=== PATIENT | male | born 1975 | race Caucasian/White ===

== ENCOUNTER 2017-08-03 18:49 | Emergency (ER) | payer OTHER ==
[2017-08-03] MEDS ORDERED: Sodium Chloride 0.9% 1,000 ML IV SCH (19:15)
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
[2017-08-03 19:39] LABS: ACETAMINOPHEN 0 ug/mL (10-30)
--- NOTE | 2017-08-04 07:09 | CR ---
Chest: Frontal view of the chest was obtained. Comparison: No previous study. Heart size and mediastinum are normal. Lungs are clear. Bony structures are grossly intact. Impression: 1. Nothing acute is seen on frontal chest x-ray. Diagnostic code #1
== END 2017-08-03 20:40 | disposition home or self-care (01) ==
LOC: JD.ED 18:49
DX: F10.229 Alcohol dependence with intoxication, unspecified (principal); F17.210 Nicotine dependence, cigarettes, uncomplicated; Y90.7 Blood alcohol level of 200-239 mg/100 ml
CPT/HCPCS: 36415; 71045; 80053; 80306; 81001; 83605; 83735; 83930; 84484; 85025; 85379; 85610; 85730; 93005; 96360; 99285; G0480; J7040; 99283

== ENCOUNTER 2022-10-11 21:45 | Emergency (ER) | payer OTHER, BC ==
[2022-10-11] MEDS ORDERED: Ondansetron 4 MG/2 ML SDV IVPUSH ONE (21:54)
[2022-10-11] MEDS ORDERED: HYDROmorphone 0.5 MG/0.5 ML Syringe IVPUSH ONE (21:54)
[2022-10-11] MEDS ORDERED: Sodium Chloride 0.9% 1,000 ML IV SCH (22:00)
[2022-10-11] MEDS ORDERED: Diphtheria,Pertussis(Acell),Tetanus Vaccine 0.5 ML Syringe IM ONE (22:12)
[2022-10-11] MEDS ORDERED: HYDROmorphone 1 MG/ML Syringe IVPUSH ONE (23:54)
[2022-10-12] MEDS ORDERED: Lidocaine 1% 4 ML ONE (00:59)
[2022-10-12] MEDS ORDERED: fentaNYL 100 MCG/2 ML SDV ONE (00:59)
[2022-10-12] MEDS ORDERED: Propofol 200 MG/20 ML SDV ONE (00:59)
[2022-10-12] MEDS ORDERED: HYDROmorphone 1 MG/ML Syringe IVPUSH ONE ×3 (01:11→03:04)
[2022-10-12] MEDS ORDERED: HYDROmorphone 0.5 MG/0.5 ML Syringe IVPUSH ONE (04:17)
[2022-10-12] MEDS ORDERED: Lidocaine 1% 10 ML MDV INJECT ONE (04:27)
[2022-10-12] MEDS ORDERED: Bupivacaine 0.5%/EPINEPHrine 1:200,000 30 ML SDV INJECT ONE (06:56)
[2022-10-12] MEDS ORDERED: Lidocaine 1% 20 ML MDV ONE (06:56)
[2022-10-12] MEDS ORDERED: Ketorolac 15 MG/ML SDV IVPUSH ONE (07:41)
[2022-10-12] MEDS ORDERED: Ondansetron 4 MG/2 ML SDV IVPUSH ONE (08:00)
[2022-10-12 08:42] VITALS: BP 171/103; PULSE 110
== END 2022-10-12 08:26 | disposition home or self-care (01) ==
LOC: JD.ED 21:45
DX: S02.85XA Fracture of orbit, unspecified, initial encounter for closed fracture (principal); S52.502A Unspecified fracture of the lower end of left radius, initial encounter for closed fracture; S01.511A Laceration without foreign body of lip, initial encounter; S01.411A Laceration without foreign body of right cheek and temporomandibular area, initial encounter; S01.111A Laceration without foreign body of right eyelid and periocular area, initial encounter; S01.81XA Laceration without foreign body of other part of head, initial encounter; F10.90 Alcohol use, unspecified, uncomplicated; F17.210 Nicotine dependence, cigarettes, uncomplicated; Z86.16 Personal history of COVID-19; V86.99XA Unspecified occupant of other special all-terrain or other off-road motor vehicle injured in nontraffic accident, initial encounter; Y92.410 Unspecified street and highway as the place of occurrence of the external cause
CPT/HCPCS: 12016; 25605; 70450; 70486; 73110; 90471; 90715; 96374; 96375; 96376; 99152; 99284; J1170; J1885; J2405; J2704; J3010; J3490; J7030